=== PATIENT | male | born 1995 | race Caucasian/White ===

== ENCOUNTER 2019-08-14 21:06 | Emergency (ER) | payer BC ==
[~2019-08-14] VITALS: Ht 180.3 cm; Wt 78.2 kg
[2019-08-14 21:21] VITALS: BP 121/67; Ht 180.3 cm; Wt 78.2 kg
== END 2019-08-14 21:53 | disposition home or self-care (01) ==
LOC: ED 21:06
DX: S70.362A Insect bite (nonvenomous), left thigh, initial encounter (principal); R20.0 Anesthesia of skin; R20.2 Paresthesia of skin; W57.XXXA Bitten or stung by nonvenomous insect and other nonvenomous arthropods, initial encounter; Y93.89 Activity, other specified; Y92.89 Other specified places as the place of occurrence of the external cause; Y99.8 Other external cause status

== ENCOUNTER 2019-10-27 21:34 | Emergency (ER) | payer BC ==
[~2019-10-27] VITALS: Ht 180.3 cm; Wt 80.0 kg
[2019-10-27 21:42] VITALS: Ht 180.3 cm; Wt 80.0 kg
[2019-10-27 22:55] LABS: CALCIUM 8.7 mg/dL (8.5-10.1); CARBON DIOXIDE 35.4 mmol/L (21-32); CHLORIDE SERUM 102 mmol/L (98-107); GFR1 > 60 mL/min; GLUCOSE SERUM 90 mg/dL (74-106); POTASSIUM SERUM 3.8 mmol/L (3.5-5.1); SODIUM SERUM 140 mmol/L (136-145)
[2019-10-27 23:00] LABS: ALBUMIN 4.1 g/dL (3.4-5.0); ALKALINE PHOSPHATASE 63 U/L (46-116); ALT/SGPT 13 U/L (16-63); AST/SGOT 14 U/L (15-37); BILIRUBIN TOTAL 0.61 mg/dL (0.20-1.00); TOTAL PROTEIN, SERUM 7.1 g/dL (6.4-8.2)
[2019-10-27 23:26] LABS: AMPHETAMINE QUAL UR NONE DETECTED (See below)
[2019-10-28 00:47] VITALS: BP 121/68
== END 2019-10-28 00:47 | disposition home or self-care (01) ==
LOC: ED 21:34
PROVIDERS: Emergency Medicine
DX: R20.2 Paresthesia of skin (principal)